=== PATIENT | female | born 1945 | race Caucasian/White ===

== ENCOUNTER → 2016-10-26 | Outpatient (CLI) | payer MEDICARE, BC ==
[2016-10-26 12:16] LABS: Appearance,Urine Clear (Clear); Bilirubin,Urine Negative (Negative); Glucose,Urine (UA) Negative (Negative); Ketones,Urine Negative (Negative); Leukocyte Esterase,Urine Negative (Negative); Nitrite,Urine Negative (Negative); PH, Urine 6.5 (5.0-8.0); Protein,Urine Negative (Negative); Specific Gravity,Urine 1.005 (1.001-1.035); UA Billing (MACRO vs. MICRO) CHEM; Urobilinogen,Urine <2.0 mg/dL (<2.0)
[2016-10-26 12:18] LABS: Basophils # (A) 0.1 k/uL (0-0.2); Basophils % (A) 1 %; CH 30.1; CHCM 32.5; Eosinophils # (A) 0.2 k/uL (0-0.7); Eosinophils % (A) 2 %; HDW 2.46; Luc # (Auto) 0.18; Luc % (Auto) 2; Lymphocytes # (A) 1.9 k/uL (1.0-4.8); Lymphocytes % (A) 17 %; MCH 29.6 pg (25.0-35.0); MCHC 31.8 g/dL (31.0-37.0); MCV 93.1 fL (80.0-100.0); Mean Platelet Volume 8.1; Monocytes # (A) 0.9 k/uL (0-1.0); Monocytes % (A) 8 %; Neutrophils # (A) 7.9 k/uL (1.3-7.7); Neutrophils % (A) 71 %; RBC 4.73 m/uL (3.80-5.40); RDW 12.9 % (11.5-15.5); WBC 11.1 k/uL (3.8-10.6); WBC (Perox) 12.11
[2016-10-26 12:30] LABS: Partial Thromboplastin Time 24.2 sec (22.0-30.0); Prothrombin Time 9.8 sec (9.0-12.0)
[2016-10-26 12:46] LABS: ALT 49 U/L (9-52); AST 40 U/L (14-36); Alkaline Phosphatase 89 U/L (38-126); Anion Gap 13 mmol/L; Blood Urea Nitrogen 13 mg/dL (7-17); Calcium 10.2 mg/dL (8.4-10.2); Carbon Dioxide 28 mmol/L (22-30); Chloride 104 mmol/L (98-107); Glucose 94 mg/dL (74-99); Non-African American GFR(MDRD) >60 (>60 ml/min/1.73 sqM); Potassium 4.7 mmol/L (3.5-5.1); Sodium 145 mmol/L (137-145); Total Bilirubin 0.8 mg/dL (0.2-1.3); Total Protein 7.3 g/dL (6.3-8.2)
== END | disposition home or self-care (01) ==
LOC: LABWHC1 11:25
PROVIDERS: ATTEND Orthopaedic Surgery Sports Medicine
DX: Z01.810 Encounter for preprocedural cardiovascular examination (principal); Z11.2 Encounter for screening for other bacterial diseases
CPT/HCPCS: 80053; 81003; 85025; 85610; 85730; 87070

== ENCOUNTER 2016-11-10 10:43 | Inpatient (IN) | payer MEDICARE, BC ==
[2016-11-01 10:28] VITALS: BMI 30.1
[~2016-11-10 10:43] MED LIST: ACETAMINOPHEN TAB 500 MG TAB PO ONE; ALVIMOPAN 12 MG CAPSULE PO ONE; DEXAMETHASONE SOD PHOSPHATE 10 MG/ML 1 ML VIAL IV ONE; HYDROmorphone 1 MG/ML 1 ML SYRINGE IVP PRN; LIDOCAINE 1% 20 ML VIAL (10MG/ML) FOR IV START INTRADERMA PRN; MELOXICAM 7.5 MG TAB PO ONE; MIDAZOLAM 2 MG/2 ML VIAL IV PRN; ONDANSETRON 4 MG/2 ML VIAL IVP ONE; SCOPOLAMINE 1.5MG/72HR PATCH TRANSDERM ONE; ceFAZolin 2 GM in SODIUM CHLORIDE 0.9% 100 ML IVPB ONE
[2016-11-10] MEDS: LACTATED RINGERS 1,000 ML IV SCH ×2 (11:25→19:14)
[2016-11-10] MEDS ORDERED: fentaNYL (PF) 50 MCG/ML 2 ML AMP ONE (12:24)
[2016-11-10] MEDS ORDERED: PROPOFOL 10 MG/ML 20 ML VIAL IV ONE (12:24)
[2016-11-10] MEDS ORDERED: TRANEXAMIC ACID 1,000 MG/10 ML VIAL ONE (12:24)
[2016-11-10] MEDS ORDERED: MIDAZOLAM 2 MG/2 ML VIAL ONE (12:24)
[2016-11-10] MEDS ORDERED: SODIUM CHLORIDE 0.9% 100 ML BAG ONE (12:24)
[2016-11-10] MEDS ORDERED: MORPHINE SULFATE (PF) 0.3 MG/0.3 ML SYR ONE (12:24)
[2016-11-10] MEDS ORDERED: TRANEXAMIC ACID 1,000 MG in SODIUM CHLORIDE 0.9% 100 ML IVPB STA (12:55)
[2016-11-10] MEDS: ROPIVACAINE 246.25 MG, EPINEPHrine 0.5 MG, KETOROLAC 30 MG, cloNIDine HCL/PF 80 MCG, WA... MISCELLANE ONE ×10 (12:59→13:45)
[2016-11-10] MEDS ORDERED: ceFAZolin 3,000 MG in SODIUM CHLORIDE 0.9% IRRIGATIO 3,000 ML IRRIGATION ONE (13:00)
[2016-11-10] MEDS ORDERED: LACTATED RINGERS 1,000 ML IV ONE (13:08)
[2016-11-10] MEDS ORDERED: MAGNESIUM HYDROXIDE 2,400 MG/10 ML CUP PO PRN (14:34)
[2016-11-10] MEDS ORDERED: BISACODYL 10 MG SUPP RECTAL PRN (14:34)
[2016-11-10] MEDS ORDERED: ONDANSETRON 4 MG/2 ML VIAL IVP PRN ×2 (14:34→14:55)
[2016-11-10] MEDS ORDERED: hydrOXYzine PAMOATE 25 MG CAP PO PRN (14:34)
[2016-11-10] MEDS ORDERED: HYDROcodone/APAP 7.5-325MG 1 EACH TAB PO PRN (14:34)
[2016-11-10] MEDS ORDERED: ACETAMINOPHEN TAB 325 MG TAB PO PRN (14:34)
[2016-11-10] MEDS ORDERED: TEMAZEPAM 15 MG CAP PO PRN (14:34)
[2016-11-10] MEDS ORDERED: NA PHOS,M-B/NA PHOS,DI-BA 133 ML ENEMA RECTAL PRN (14:34)
[2016-11-10] MEDS ORDERED: DIAZEPAM 5 MG TAB PO PRN (14:34)
[2016-11-10] MEDS ORDERED: NALOXONE 0.4 MG/ML 1 ML VIAL IV PRN ×3 (14:34→15:31)
[2016-11-10] MEDS ORDERED: traMADol 50 MG TAB PO PRN (14:34)
[2016-11-10] MEDS ORDERED: HYDROmorphone 1 MG/ML 1 ML SYRINGE IVP PRN ×3 (14:34)
--- NOTE | 2016-11-10 14:53 | XR ---
EXAMINATION TYPE: XR knee limited RT DATE OF EXAM: 11/10/2016 2:50 PM CLINICAL HISTORY: Postoperative evaluation Two views of the right knee are submitted. Identified are changes of total knee arthroplasty with femoral and tibial components appearing well seated. Postsurgical soft tissue changes are noted. Alignment is anatomic.
[2016-11-10] MEDS ORDERED: MORPHINE SULFATE 4 MG/ML SYRINGE IVP PRN ×2 (14:55→15:31)
[2016-11-10] MEDS ORDERED: diphenhydrAMINE 50 MG/ML 1 ML VIAL IVP PRN (14:55)
[2016-11-10] MEDS: ASPIRIN 325 MG TAB PO SCH (19:39)
[2016-11-10] MEDS: SENNOSIDES-DOCUSATE SODIUM 1 EACH TAB PO SCH (19:39)
[2016-11-10] MEDS: ATORVASTATIN 10 MG TAB PO SCH (19:40)
[2016-11-10] MEDS: ceFAZolin 2 GM in SODIUM CHLORIDE 0.9% 100 ML IVPB SCH (23:44)
[2016-11-11 03:47] VITALS: RESP 16
[2016-11-11] MEDS: LACTATED RINGERS 1,000 ML IV SCH ×2 (03:58→05:55)
--- NOTE | 2016-11-11 07:20 | OP ---
DATE OF SERVICE: 11/10/2016 SURGEON: SAÚL GARCIA MD PRICE CHECKER: Clifford Flanagan PA-C PREOPERATIVE DIAGNOSIS: Right knee osteoarthrosis. POSTOPERATIVE DIAGNOSIS: Right knee osteoarthrosis. OPERATION: Right total knee arthroplasty. ANESTHESIA: Spinal with sedation. ESTIMATED BLOOD LOSS: 100 mL. TOURNIQUET TIME: 51 minutes at 250 mmHg. DRAINS: None. DISPOSITION: Postanesthesia care unit. INDICATIONS: Dawna is a very pleasant 71-year-old female with long-standing history of right knee pain. History and physical examination were consistent with advanced right knee osteoarthrosis. She has been through significant nonoperative management up to this point. Further treatment options were discussed and she decided to go forward with a right total knee arthroplasty. The risks of the procedure were discussed with her in detail. These risks include, but are not limited to risk of infection, nerve damage, bleeding, pain, and a small risk of deep vein thrombosis, which could lead to fatal pulmonary embolism. There is also a risk of loosening of the implant, which could require revision operation. Patient understands these risks. All questions were answered to her satisfaction. Appropriate informed consent was obtained. DESCRIPTION OF PROCEDURE: The patient was identified in the preoperative holding area. Surgical site was marked by both the patient and myself. She was given 2 grams of Ancef IV for prophylactic purposes. She was then transferred to the operative suite, where she was placed supine on the operating room table. Spinal anesthetic was then administered and dosed per the anesthesia department without apparent complication. Examination under anesthesia was then performed. The patient had full extension. She had 100 degrees of flexion. The medial collateral ligament, lateral collateral ligament and posterior cruciate ligaments were stable. Tourniquet was then placed high on the right upper thigh, well padded in preparation for surgery. The patient's right lower extremity was then prepped and draped in the usual sterile fashion. Standard surgical pause was then undertaken to ensure that we were operating on correct site and that appropriate preoperative antibiotics had been given. All staff in the room were in agreement and we proceeded. The outlines of the patella were then marked with a surgical pen. A planned 12 cm vertical incision centered over the patella was marked with a surgical pen. Leg was then exsanguinated with an Esmarch dressing. The knee was then flexed and tourniquet was inflated to 250 mmHg. The total tourniquet time for the procedure was 51 minutes at 250 mmHg. Incision was then made with a 10 blade scalpel. Dissection was carried down sharply through overlying fascia. Great care was taken to minimize the skin flaps. The knee was then exposed using a standard medial parapatellar approach. Small cuff of quadriceps tendon was left for suturing. She was in a bit of varus preoperatively. A standard medial release was then made. Superficial medial collateral ligament was dissected off the bone around to the posterior aspect of the proximal tibia. The medial meniscus was then excised as well. The lateral meniscus was also released anteriorly. The leg was then externally rotated. The patella was everted and the knee was flexed. Retractors were then placed to protect the collateral ligaments. We then proceeded to remove the infrapatellar fat pad. This was excised sharply tangentially with the fibers of the patellar tendon. I then proceeded to remove the peripheral osteophytes. This was done with a rongeur. I then proceeded with the distal femoral resection. She did have near full extension. A planned 9 mm resection was done. The femoral canal was then entered in the midline of the femur, approximately 10 mm anterior to the origin of the posterior cruciate ligament. The britany was then advanced down the center of the femur and the britany placed intramedullary. Based on preoperative radiographs, the angle being the anatomic and mechanical axis of the femur was approximately 4 to 5 degrees. The valgus angle of the distal femoral cutting guide was then set at 4 degrees for the right knee. The distal femoral cutting guide was then advanced over the intramedullary britany. This was seated firmly against the femur. I then, as mentioned, planned to take 9 mm off the distal femur. The cutting block was then secured onto the femur with pins. The jig was then removed and the distal femoral cut was made through the slot of the block. The pins then removed and the distal femoral cutting block was removed. The accuracy of the distal femoral cuts was checked with 2 flat bars. I then proceeded with femoral sizing. The posterior referencing sizing guide was held firmly against the resected distal surface of the femur. Posterior condyles were resting on the posterior plane of the guide. The sizing stylus was then placed onto the anterior femur. Size was measured at a size 9. I then assessed for femoral rotation. Plan was for 3 degrees of external rotation, 3 degrees of external rotation was placed onto the jig. These holes were then marked. I then confirmed rotation by 3 separate methods. This was done using up the epicondylar axis as well as Whitesides line and posterior referencing. It was deemed that the external rotation was proper. I then went forward with placing the femoral cutting block. This was placed over the previously placed pinholes. The mary wing was then placed onto the anterior slots to ensure that we would not notch the anterior femur with the anterior femoral cut. I then proceeded with the anterior femoral cut. This was flush with the anterior cortex of the femur. Posterior cuts were then made followed by the anterior chamfer cut and then the posterior chamfer cut. The cutting block was then removed. Throughout the resection, the collateral ligaments were protected with retractors. I then placed a trial 9 femur. It fit very nice medial to lateral and fit flush with the distal end of the femur. The drill holes were then made. I then proceeded with the tibial cut. I planned for a cruciate-retaining knee. The guide was then placed and set for varus valgus and for slope. The height was set for approximately 2 mm resection from the medial tibial plateau, which was the lower side. I was happy with the alignment and the amount of resection. The cutting block was then pinned to the proximal tibia. The alignment britany was removed and the proximal tibia was resected with reciprocating saw. Again this was done with retractors, protecting the collateral ligaments as well as posterior cruciate ligament. I then proceeded to evaluate the flexion and extension gaps. A 10 mm block was placed. The flexion-extension gaps were equal. I then proceeded with resection of the posterior osteophytes. She had very minimal posterior osteophytes. This was done using a curved osteotome. This resected the posterior osteophytes and posterior capsule stripping was also done off the posterior aspect of the femur at this time. The osteophytes were then removed. I then proceeded with resection of the patella. Thickness of the patella was measured using the caliper. Thickness was 22 mm. Thickness of the anticipated patellar dome was then taken into account. Resection was then performed and confirmed to be equal in 4 quadrants using the caliper. Approximately 14 mm of bone remained after the resection. A 29 x 8 mm standard patellar trial was then placed. The ( ) were then drilled and trial was then placed. I then proceeded with sizing tibial plate. A size F tibial plate fit very nicely. I then placed a trial femur, tibial tray and patellar button. A 10 mm trial tibial insert was also placed. The components fit very nicely. She had full flexion and extension. The extension and flexion gaps were equal and stable to both varus and valgus stress. The patella tracked appropriately. Tibial tray rotation was then marked with a Bovie. This was externally rotated properly. I then proceeded with tibial preparation. I first drilled the femoral holes and removed femoral component. The tibial tray was then set for proper external rotation as well as mediolateral placement onto the tibia. It was then pinned into place. I then proceeded with punching the keel. I then decided to proceed with cementing of all of our components. The knee was thoroughly irrigated with sterile saline solution via pulse lavage. The lateral geniculate artery was identified and cauterized. All blood was removed from the bone of the tibia, femur and patella with pulse lavage. I then proceeded with cementing. Two packs of antibiotic bone cement were prepared on the back table by the surgical supply assistant. I then proceed with cementing of the tibia first. The cement was impacted in the keel as well as deeply seated into bone. A second coat of cement was then placed. Tibia was then impacted into place. Excess cement was removed with Marietta's and jokers. I then proceeded with cementing of the femoral component. The femoral component was also cemented using standard technique. Excess cement was removed. A 10 mm trial insert was then placed into the knee. This brought into full extension with a constant axial load placed until the cement had hardened. The patellar component was then cemented. This was held firmly with a compressive device until the cement had dried. When the cement had dried, the knee was taken out of extension. All excess cement was removed from around the prosthesis. I then trialed the knee with a 10 mm insert. Flexion-extension gaps were appropriate. It came into full extension. Decided to go forward with a 10 mm cross-linked cruciate-retaining tibial insert. Polyethylene was then placed onto the tibial tray and locked into place. The knee was then reduced. The knee was again further irrigated with sterile saline solution with antibiotic added. The tourniquet was then deflated. Total tourniquet time for the case was 51 minutes at 250 mmHg. Final components were Jae persona size 9 cruciate-retaining femoral component, a size F tibial tray, a 10 mm medial congruent cruciate retaining polyethylene insert and a 29 x 8 mm patella. I then proceeded with closure. Again, the knee was thoroughly irrigated. The quadriceps tendon and the medial retinaculum were reapproximated with #2 Ethibond suture. The extensor mechanism was then closed with running #2 Quill suture. Subcutaneous tissues were closed with 2-0 Vicryl interrupted suture. Skin was closed with a running 3-0 Quill suture. Dermabond was applied to the incision. Sterile compressive dressings were applied. All sponge and needle counts were deemed correct prior to closure. The patient tolerated the procedure without apparent complication. She was transferred to the recovery room in stable condition.
[2016-11-11 07:27] LABS: Basophils # (A) 0.1 k/uL (0-0.2); Basophils % (A) 0 %; CH 30.2; CHCM 32.9; Eosinophils % (A) 0 %; HGB 11.3 gm/dL (11.4-16.0); Luc % (Auto) 1; Lymphocytes # (A) 1.2 k/uL (1.0-4.8); Lymphocytes % (A) 6 %; MCH 30.6 pg (25.0-35.0); MCHC 33.2 g/dL (31.0-37.0); MCV 92.3 fL (80.0-100.0); Mean Platelet Volume 8.3; Monocytes # (A) 1.1 k/uL (0-1.0); Monocytes % (A) 6 %; Neutrophils # (A) 15.8 k/uL (1.3-7.7); Neutrophils % (A) 87 %; RBC 3.69 m/uL (3.80-5.40); RDW 12.7 % (11.5-15.5); WBC 18.2 k/uL (3.8-10.6); WBC (Perox) 19.66
[2016-11-11] MEDS: ceFAZolin 2 GM in SODIUM CHLORIDE 0.9% 100 ML IVPB SCH (07:54)
[2016-11-11] MEDS: ASPIRIN 325 MG TAB PO SCH ×2 (07:54→19:50)
[2016-11-11] MEDS: HYDROcodone/APAP 7.5-325MG 1 EACH TAB PO PRN ×3 (08:13→19:50)
--- NOTE | 2016-11-11 08:36 | P.PN ---
Progress Note - Text Date: 11/11/2016 Time: 720 The patient is status post, total right knee arthroplasty Vital signs stable VAS: 0-10 Patient has no complaints of pain. The patient incurred some minimal itching yesterday, this itching is now subsiding. Pain meds to be managed by service.
--- NOTE | 2016-11-11 13:01 | P.PN ---
Subjective Principal diagnosis: S/P Right TKA Patient is postop day #1 from a right total knee arthroplastyperformed by Dr. Smart. She is doing well today. She has postoperative surgical pain as expected which is mostly controlled with oral pain medication. She denies any new complaints. She has no numbness or tingling. She denies calf pain. Review of systems is negative for fever, chills, chest pain, shortness of breath or other. Objective - Vital Signs Vital signs: Vital Signs Temp 97.3 F L 11/11/16 07:00 Pulse 77 11/11/16 07:00 Resp 16 11/11/16 07:00 BP 131/65 11/11/16 07:00 Pulse Ox 95 11/11/16 07:00 Intake & Output 11/10/16 11/11/16 11/11/16 18:59 06:59 18:59 Intake Total 1701 1200 240 Output Total 141 829 9345 Balance 1426 650 -760 Weight 89.811 kg Intake: IV 1701 Intake, IV Titration 900 Amount Lactated Ringers 1,000 ml 900 @ 100 mls/hr IV .Q10H GRACE Rx#:[id number] Oral 300 240 Output: Urine 477 872 5218 Uretheral ([place]) 1000 Estimated Blood Loss 100 Other: Voiding Method Indwelling Catheter Indwelling Catheter Indwelling Catheter - Exam Inspection of the surgical wound reveals a benign intact incision. There is no active bleeding, drainage or dehiscence. Calf is soft and nontender. Sensation to light touch is intact throughout the lower extremity. She is able to plantarflex and dorsiflex the foot. 2+ dorsalis pedis pulse and less than 2 second cap refill is present. - Constitutional General appearance: Present: no acute distress - Psychiatric Psychiatric: Present: A&O x's 3, appropriate affect, intact judgment & insight - Labs CBC & Chem 7: 11/11/16 06:59 Labs: Abnormal Lab Results - Last 24 Hours (Table) 11/11/16 Range/Units 06:59 WBC 18.2 H (3.8-10.6) k/uL RBC 3.69 L (3.80-5.40) m/uL Hgb 11.3 L (11.4-16.0) gm/dL Neutrophils # 15.8 H (1.3-7.7) k/uL Monocytes # 1.1 H (0-1.0) k/uL Assessment and Plan (1) Status post total knee replacement Narrative/Plan: Patient will continue with routine postop orthopedic protocol including pain management, wound care, physical therapy, DVT prophylaxis and medical management. Expect that she'll discharge to home with home healthcare tomorrow 11/12/2016 Status: Acute Time with Patient: Less than 30
[2016-11-11] MEDS: MULTIVITAMINS, THERA 1 EACH TAB PO SCH (13:21)
--- NOTE | 2016-11-11 16:52 | CONS ---
DATE OF CONSULTATION: REASON FOR CONSULTATION: Leukocytosis and management of hypertension. Patient is a pleasant 71-year-old female admitted for right knee arthroplasty. Patient postsurgically clinically did well and patient did move her bowels today. Patient denied any fever, chills. Patient denied any nausea, vomiting, cough, dysuria. Patient does not have a [place] catheter at this point of time. REVIEW OF SYSTEMS: CONSTITUTIONAL: No fever, no malaise, no fatigue. HEENT: No recent visual problems or hearing problems. Denied any sore throat. CARDIOVASCULAR: No chest pain, orthopnea, PND, no palpitations, no syncope. PULMONARY: No shortness of breath, no cough, no hemoptysis. GASTROINTESTINAL: No diarrhea, no nausea, no vomiting, no abdominal pain. Normoactive bowel sounds. NEUROLOGICAL: No headaches, no weakness, no numbness. HEMATOLOGICAL: Denies any bleeding or petechiae. GENITOURINARY: Denies any burning micturition, frequency, or urgency. MUSCULOSKELETAL/RHEUMATOLOGICAL: Denies any joint pain, swelling, or any muscle pain. ENDOCRINE: Denies any polyuria or polydipsia. The rest of the 14 point review of systems is negative. PAST MEDICAL HISTORY: Hypertension, hyperlipidemia, UTIs in the past. The patient had skin cancer in the past. Patient has breast surgery, tubal ligation surgery. SOCIAL HISTORY: Denied smoking, alcohol abuse or any drug abuse. FAMILY HISTORY: Significant for cancer. PHYSICAL EXAMINATION: VITAL SIGNS: Temperature 96.9, pulse of 81, respiratory rate of 16, blood pressure 130/65. Saturating at 90% on 2 liters of O2 nasal cannula. GENERAL: The patient is alert and oriented x3, not in any acute distress. Well developed, well nourished. HEENT: Pupils are round and equally reacting to light. EOMI. No scleral icterus. No conjunctival pallor. Normocephalic, atraumatic. No pharyngeal erythema. No thyromegaly. CARDIOVASCULAR: S1 and S2 present. No murmurs, rubs, or gallops. PULMONARY: Chest is clear to auscultation, no wheezing or crackles. ABDOMEN: Soft, nontender, nondistended, normoactive bowel sounds. No palpable organomegaly. MUSCULOSKELETAL: Defer to primary service. EXTREMITIES: No cyanosis, clubbing, or pedal edema. NEUROLOGICAL: Gross neurological examination did not reveal any focal deficits. SKIN: No rashes. Laboratory data is significant for leukocytosis of 18,200 which is neutrophilic leukocytosis. ASSESSMENT AND PLAN: 1. Leukocytosis reactive secondary to right knee arthroplasty. 2. Hypertension. I recommend to hold losartan at this point of time. It can be continued upon discharge. 3. Hyperlipidemia. Continue simvastatin. 4. Right knee arthroplasty. Anticoagulation and pain management as per primary service. 5. At this point of time patient does not have any signs or symptoms of systems. I do not believe patient will require any antibiotics at this point. Thanks for letting me participate in this patient's care. Patient's primary care physician is Dr. Luis F Orozco.
[2016-11-11] MEDS: ATORVASTATIN 10 MG TAB PO SCH (19:50)
[2016-11-11] MEDS: SENNOSIDES-DOCUSATE SODIUM 1 EACH TAB PO SCH (19:50)
[2016-11-12] MEDS: LACTATED RINGERS 1,000 ML IV SCH (04:57)
[2016-11-12] MEDS: HYDROcodone/APAP 7.5-325MG 1 EACH TAB PO PRN ×2 (06:48→13:07)
[2016-11-12] MEDS: ASPIRIN 325 MG TAB PO SCH (08:37)
[2016-11-12] MEDS: MULTIVITAMINS, THERA 1 EACH TAB PO SCH (08:38)
--- NOTE | 2016-11-12 09:22 | P.DS ---
Providers Date of admission: 11/10/16 10:43 Expected date of discharge: 11/12/16 Attending physician: José Miguel Smart Consults: 11/10/16 14:38 Consult Physician Routine Consulting Provider: Delmy Goldberg Consult Reason/Comments: post op medical management Do you want consulting provider notified?: Yes Primary care physician: Luis F Orozco - Discharge Diagnosis(es) (1) Primary osteoarthritis of right knee Current Visit: Yes Status: Acute (2) Status post right knee replacement Current Visit: Yes Status: Acute Hospital Course: This is a pleasant 71-year-old female last seen in our office with complaints of right knee pain. Patient has known history of degenerative arthritis of the right knee and presented to discuss options. After discussion and consideration , patient elected to proceed with a total knee arthroplasty of the right knee. The patient was seen preoperatively and medically cleared for surgery by her primary care physician. The patient was admitted to [facility] and underwent right total knee arthroplasty on 11/10/[address] Smart. The procedure was performed without complications or sequelae. The patient has done well postoperatively. The patient was seen and evaluated at bedside today and denies any new complaints. Pain is reasonably controlled. Dressing is clean dry and intact. Incision looks fine with no erythema or active drainage. Calf is soft and nontender. The patient has full foot and ankle motion without difficulty. Patient's right lower extremity is neurovascular intact. Patient is orthopedically stable for discharge to home today. Patient Condition at Discharge: Stable Plan - Discharge Summary New Discharge Prescriptions: HYDROcodone/APAP 7.5-325MG [[place] 7.5-325] 1 - 2 each PO Q6HR PRN #90 tab PRN Reason: Pain Aspirin 325 mg PO BID #60 tab Docusate [Colace] 100 mg PO BID #60 capsule Discharge Medication List Ciprofloxacin HCl [Cipro] 500 mg PO MOWEFR 11/01/16 [History] Ergocalciferol (Vitamin D2) [Vitamin D2] 50,000 unit PO WE 11/01/16 [History] Losartan Potassium 100 mg PO QAM 11/01/16 [History] Meloxicam [Mobic] 15 mg PO DAILY 11/01/16 [History] Simvastatin [Zocor] 20 mg PO HS 11/01/16 [History] Aspirin 325 mg PO BID #60 tab 11/11/16 [Rx] Docusate [Colace] 100 mg PO BID #60 capsule 11/11/16 [Rx] HYDROcodone/APAP 7.5-325MG [[place] 7.5-325] 1 - 2 each PO Q6HR PRN #90 tab [Rx] Follow up Appointment(s)/Referral(s): [facility], [NON-STAFF] - José Miguel Smart MD [STAFF PHYSICIAN] - 2 Weeks Activity/Diet/Wound Care/Special Instructions: [facility] - [phone] - to be delivered to hospital prior to discharge Weightbearing as tolerated Keep wound clean and dry Follow-up with Dr. Smart in office, [phone] Take meds as directed Discharge Disposition: HOME WITH HOME HEALTH SERVICES
[2016-11-12 11:03] VITALS: BP 154/71; PULSE 93; TEMP 96.9
[2016-11-12 11:50] LABS: CH 30.4; CHCM 33.4; HCT 34.3 % (34.0-46.0); HDW 2.48; HGB 11.1 gm/dL (11.4-16.0); Immature Gran Flag Slight; MCH 29.7 pg (25.0-35.0); MCHC 32.5 g/dL (31.0-37.0); MCV 91.4 fL (80.0-100.0); Mean Platelet Volume 8.8; RBC 3.75 m/uL (3.80-5.40); RDW 12.8 % (11.5-15.5); WBC 12.4 k/uL (3.8-10.6); WBC (Perox) 13.41
[2016-11-12 12:37] LABS: Add Differential Manual Differential
[2016-11-12 12:39] LABS: Manual Review Performed; Metamyelocytes % 0.5 %; Nucleated Red Blood Cells 0 /100 WBC (0-0); Total Cells Counted 200
--- NOTE | 2016-11-12 22:27 | PN ---
DATE OF SERVICE: 11/12/2016 This 71-year-old woman was admitted after right knee arthroplasty as well as leukocytosis. No chest pain or palpitation. No fever. On exam, alert and oriented x3. Pulse 93, blood pressure 154/70, respirations 16, temperature 96.9, pulse ox 96% on room air. HEENT: Conjunctivae normal. NECK: No jugular venous distension. CARDIOVASCULAR: S1 and S2 muffled. RESPIRATORY: Breath sounds diminished in the bases. No rhonchi. No crackles. ABDOMEN: Soft. LEGS: Status post right knee arthroplasty. NERVOUS SYSTEM: Nonfocal. LABS: WBC 12.8, Hemoglobin is 11.1. ASSESSMENT: 1. Status post right knee arthroplasty. 2. Leukocytosis, possibly reactive. 3. Hypertension. 4. Anemia, possibly dilutional, postoperative. 5. Hyperlipidemia. 6. History of degenerative joint disease. 7. History of hyperlipidemia. 8. History of urinary tract infections, recurrent. 9. History of motion sickness. RECOMMENDATIONS AND DISCUSSION: This 71-year-old woman presented after surgery, is improving at this time. WBC has improved significantly. I recommend to continue with incentive spirometry, closely follow with the primary physician in outpatient setting and the rest of the medications per Orthopedic Surgery. Further recommendations to follow.
[2016-11-13] MEDS ORDERED: LOSARTAN 50 MG TAB PO SCH (09:00)
[2016-11-16] MEDS ORDERED: ERGOCALCIFEROL 50,000 UNIT CAP PO SCH (09:00)
== END 2016-11-12 13:25 | disposition home health service (06) | DRG 470 ==
LOC: 2ORMAIN 10:43 → 3SUR 14:42
PROVIDERS: ADMIT Orthopaedic Surgery Sports Medicine; ATTEND Orthopaedic Surgery Sports Medicine
PROC: 0SRC0J9 Replacement of Right Knee Joint with Synthetic Substitute, Cemented, Open Approach (ICD-10-PCS; principal; 2016-11-10 12:30)
DX: M17.0 Bilateral primary osteoarthritis of knee (principal); D64.9 Anemia, unspecified; I10 Essential (primary) hypertension; Z79.899 Other long term (current) drug therapy; E78.5 Hyperlipidemia, unspecified; D72.829 Elevated white blood cell count, unspecified; Z85.828 Personal history of other malignant neoplasm of skin; Z87.440 Personal history of urinary (tract) infections
CPT/HCPCS: 85025; 88300

== ENCOUNTER → 2022-08-10 | Outpatient (CLI) | payer MEDICARE, BC ==
[2022-08-10 13:48] LABS: Partial Thromboplastin Time 24.4 sec (22.0-30.0)
[2022-08-10 18:31] LABS: HCT 40.9 % (37.2-46.3); HGB 13.5 g/dL (12.0-15.0); MCH 30.8 pg (27.0-32.0); MCV 93.4 fL (80.0-97.0); Mean Platelet Volume 10.7 fL (9.5-12.2); NRBC Per 100 WBC 0 /100 WBCS (0.0-0.0); Platelet Count 320 X 10*3/uL (140-440); RBC 4.38 X 10*6/uL (4.10-5.20); RDW 12.8 % (11.5-14.5); WBC 12.17 X 10*3/uL (4.50-10.00)
[2022-08-10 18:48] LABS: Appearance,Urine Clear (Clear); Bilirubin,Urine Negative (Negative); Blood,Urine Negative (Negative); Color,Urine Yellow (Yellow); Ketones,Urine Negative (Negative); Nitrite,Urine Negative (Negative); PH, Urine 7.5 (5.0-8.0); Specific Gravity,Urine 1.007 (1.001-1.030); Urobilinogen,Urine 0.2 (0.2,1.0)
[2022-08-10 18:58] LABS: Bacteria,Urine None Seen /HPF (None Seen)
[2022-08-10 19:05] LABS: African American GFR (CKD) 90.2 (60.0-200.0); Albumin 4.4 g/dL (3.8-4.9); Albumin/Globulin Ratio 1.82 (1.60-3.17); Anion Gap 10.3 mmol/L (10.00-18.00); BUN/Creat Ratio 22.77 Ratio (12.00-20.00); Blood Urea Nitrogen 17.1 mg/dL (9.0-27.0); Carbon Dioxide 27.6 mmol/L (20.0-27.5); Globulin 2.4 g/dL (1.6-3.3); Non-African American GFR(CKD) 77.9 (60.0-200.0); Potassium 4.5 mmol/L (3.5-5.5); Total Bilirubin 0.5 mg/dL (0.30-1.20); Total Protein 6.9 g/dL (6.2-8.2)
[2022-08-11 06:55] LABS: INR 0.9 (<1.2); Prothrombin Time 9.9 sec (9.0-12.0)
== END | disposition home or self-care (01) ==
LOC: LABPAT 12:59
PROVIDERS: ATTEND Orthopaedic Surgery Sports Medicine
DX: Z01.818 Encounter for other preprocedural examination (principal); R94.31 Abnormal electrocardiogram [ECG] [EKG]
CPT/HCPCS: 80053; 81001; 85027; 85610; 85730; 87070; 93005

== ENCOUNTER 2022-08-25 07:42 | Day surgery (SDC) | payer MEDICARE, BC ==
[2022-08-15 11:28] VITALS: BMI 30.1
[~2022-08-25 07:42] MED LIST changes: -ACETAMINOPHEN TAB 500 MG TAB PO ONE; +ACETAMINOPHEN TAB 500 MG TAB PO PRN; -ALVIMOPAN 12 MG CAPSULE PO ONE; -DEXAMETHASONE SOD PHOSPHATE 10 MG/ML 1 ML VIAL IV ONE; +GABAPENTIN 300 MG CAP PO PRN; -HYDROmorphone 1 MG/ML 1 ML SYRINGE IVP PRN; -LIDOCAINE 1% 20 ML VIAL (10MG/ML) FOR IV START INTRADERMA PRN; -MELOXICAM 7.5 MG TAB PO ONE; +MELOXICAM 7.5 MG TAB PO PRN; -MIDAZOLAM 2 MG/2 ML VIAL IV PRN; -ONDANSETRON 4 MG/2 ML VIAL IVP ONE; +ONDANSETRON 4 MG/2 ML VIAL IVP PRN; -SCOPOLAMINE 1.5MG/72HR PATCH TRANSDERM ONE; +TRANEXAMIC ACID IN NACL,ISO-OS 1,000 MG in SALINE 1 100ML.BAG IVPB PRN; -ceFAZolin 2 GM in SODIUM CHLORIDE 0.9% 100 ML IVPB ONE
[2022-08-25] MEDS ORDERED: LIDOCAINE 1% (10MG/ML) FOR IV START INTRADERMA PRN (07:54)
[2022-08-25] MEDS ORDERED: HYDROmorphone 0.5 MG/0.5 ML SYRINGE IVP PRN ×4 (07:54→09:31)
[2022-08-25] MEDS: LACTATED RINGERS 1,000 ML IV SCH ×5 (09:03→21:11)
[2022-08-25] MEDS: DEXAMETHASONE SOD PHOSPHATE 4 MG/ML 1 ML VIAL IV ONE ×2 (09:05→14:16)
[2022-08-25] MEDS: ONDANSETRON 4 MG/2 ML VIAL IVP ONE ×2 (09:05→14:16)
[2022-08-25] MEDS ORDERED: MIDAZOLAM 2 MG/2 ML VIAL IV ONE (09:22)
[2022-08-25] MEDS ORDERED: MAGNESIUM HYDROXIDE 2,400 MG/10 ML CUP PO PRN (09:31)
[2022-08-25] MEDS ORDERED: bisacodyL 10 MG SUPP RECTAL PRN (09:31)
[2022-08-25] MEDS ORDERED: ACETAMINOPHEN TAB 325 MG TAB PO PRN (09:31)
[2022-08-25] MEDS ORDERED: TEMAZEPAM 15 MG CAP PO PRN (09:31)
[2022-08-25] MEDS ORDERED: ONDANSETRON 4 MG/2 ML VIAL IVP PRN (09:31)
[2022-08-25] MEDS ORDERED: NALOXONE 0.4 MG/ML 1 ML VIAL IV PRN (09:31)
[2022-08-25] MEDS ORDERED: diazePAM 5 MG TAB PO PRN (09:31)
[2022-08-25] MEDS ORDERED: traMADol 50 MG TAB PO PRN (09:31)
[2022-08-25] MEDS ORDERED: NA PHOS,M-B/NA PHOS,DI-BA 133 ML ENEMA RECTAL PRN (09:31)
[2022-08-25] MEDS ORDERED: HYDROcodone/APAP 7.5-325MG 1 EACH TAB PO PRN ×2 (09:34)
[2022-08-25] MEDS ORDERED: ROPIVACAINE 5 MG/ML 30 ML VIAL ONE (09:55)
[2022-08-25] MEDS ORDERED: MIDAZOLAM 2 MG/2 ML VIAL ONE (09:55)
[2022-08-25] MEDS ORDERED: DEXAMETHASONE SOD PHOSPHATE 4 MG/ML 1 ML VIAL ONE (09:55)
[2022-08-25] MEDS ORDERED: PROPOFOL 10 MG/ML 20 ML VIAL IV ONE (09:55)
[2022-08-25] MEDS ORDERED: fentaNYL (PF) 50 MCG/ML 2 ML AMP ONE (09:55)
[2022-08-25] MEDS ORDERED: TRANEXAMIC ACID IN NACL,ISO-OS 1,000 MG/100 ML BAG ONE (09:55)
[2022-08-25] MEDS ORDERED: ceFAZolin 3,000 MG in SODIUM CHLORIDE 0.9% IRRIGATIO 3,000 ML IRRIGATION ONE (10:22)
[2022-08-25] MEDS ORDERED: LACTATED RINGERS 1,000 ML IV ONE (11:01)
[2022-08-25] MEDS ORDERED: ROPIVACAINE 0.2%-NS ON-Q PUMP 2 MG/ML EACH MISCELLANE ONE (12:35)
--- NOTE | 2022-08-25 13:02 | OP ---
OPERATIVE REPORT PREOPERATIVE DIAGNOSIS: Left knee osteoarthrosis. POSTOPERATIVE DIAGNOSIS: Left knee osteoarthrosis. PROCEDURE PERFORMED: Left total knee arthroplasty. ANESTHESIA: Spinal with sedation. ESTIMATED BLOOD LOSS: 100 mL. TOURNIQUET TIME: 60 minutes at 250 mmHg. COMPLICATIONS: None apparent. DRAINS: None. DISPOSITION: Postanesthesia care unit. INDICATIONS FOR PROCEDURE: Dawna is a very pleasant 77-year-old female with longstanding history of left knee pain. History and physical examination are consistent with advanced left knee osteoarthrosis. She has been through significant nonoperative management up to this point. Further treatment options were discussed, and she decided to go forward with the left total knee arthroplasty. The risks of procedure were all discussed with her in detail. These risks include, but are not limited to risk of infection, nerve damage, bleeding, pain, and a small risk of deep vein thrombosis, which could lead to fatal pulmonary embolism. There is also risk of loosening of the implant, which could require revision operation. The patient understands these risks. All of her questions were answered to her satisfaction. An appropriate informed consent was obtained. DESCRIPTION OF THE PROCEDURE: The patient was identified in the preoperative holding area. Surgical site was marked by both the patient and myself. She was given 2 g of Ancef IV for prophylactic purposes. She was then transported to the operative suite. She was placed supine on the operating room table. Spinal anesthetic was then administered and dosed per the Anesthesia Department without apparent complication. Examination under anesthesia was then performed. The patient was 2 to 3 degrees shy of full extension. She had 95 degrees of flexion, and the medial collateral ligament, lateral collateral ligament, and posterior cruciate ligaments were stable. Tourniquet was then placed high on the left upper thigh and well-padded in preparation for surgery. The patient's left lower extremity was then prepped and draped in usual sterile fashion. Standard surgical pause was undertaken to ensure that we were operating the correct site and that appropriate preoperative antibiotics had been given. All staff in the room were in agreement, and we proceeded. The outlines of the patella were marked with a surgical pen. A planned 12 cm vertical incision centered over the patella was marked with a surgical pen. The leg was then exsanguinated with an Esmarch dressing. The knee was then flexed, and the tourniquet was inflated to 250 mmHg. The total tourniquet time for the procedure was 60 minutes. Incision was then made with a 10-blade scalpel. Dissection was carried down sharply overlying the fascia. Great care was taken to minimize the skin flaps. The knee was then exposed using a standard medial parapatellar approach. A small cuff of quadriceps tendon was then left for suturing. She was in quite a bit of varus preoperatively. A standard medial release was then made. Superficial medial collateral ligament was dissected off the bone around to the posterior aspect of the proximal tibia. The medial meniscus was then excised as well. The lateral meniscus was also released anteriorly. The leg was then externally rotated. The patella was everted. The knee was flexed. The retractors were then placed to protect the collateral ligaments. I then proceeded to remove the infrapatellar fat pad. This was excised sharply tangentially with the fibers of the patellar tendon. I then proceeded to remove the peripheral osteophytes. This was done with a rongeur. I then proceeded with the distal femoral resection. She did have near full extension. A planned 9 mm resection was then done. The femoral canal was then entered in the midline of the femur approximately 10 mm anterior to the origin of the posterior cruciate ligament. The britany was then advanced down to the center of the femur and placed intramedullary. Based on the preoperative radiographs, the angle between the anatomic and mechanical axis of the femur was approximately 4 to 5 degrees. The valgus angle of the distal femoral cutting guide was then set at 4 degrees for the left knee. The distal femoral cutting guide was then advanced over the intramedullary britany. This was seated firmly against the femur. I then as mentioned planned to take 9 mm off the distal femur. The cutting block was then secured onto the femur with pins. The jig was then removed. The distal femoral cuts were made through the slot of the block. The pins were then removed. The distal femoral cutting block was removed. The accuracy of the distal femoral cuts was checked with 2 flat bars. I then proceeded with femoral sizing. Posterior referencing sizing guide was held firmly against the resected distal surface of the femur. The posterior condyles were resting on the posterior plane of the guide. The sizing stylus was then placed onto the anterior femur. The size was measured as a size 8. I then assessed for femoral rotation. The plan was for 3 degrees of external rotation. Three degrees of external rotation was placed onto the jig. These holes were then marked. I then confirmed the rotation by 3 separate methods. This was done using epicondylar axis as well as [place]'s line and posterior referencing. It was deemed that the external rotation was proper. I then went forward and placed the femoral cutting block. This was placed over the previously-placed pin holes. The Ash wing was then placed onto the anterior slots to ensure that we would not notch the anterior femur with the anterior femoral cut. I then proceeded with the anterior femoral cut. This was flushed with the anterior cortex of the femur. The posterior cuts were then made followed by the anterior chamfer cut, then the posterior chamfer cut. The cutting block was then removed. Throughout the resection, the collateral ligaments were protected with retractors. I then placed a trial size 8 femur. It was slightly wide medial and lateral, but the narrow fit very nicely, and it fit flush with the distal end of the femur. The drill hole was then made. I then proceeded with the tibial cut. I planned for cruciate-retaining knee. The guide was placed and set for varus and valgus and for slope. The height was set for approximate 2 mm resection from the medial tibial plateau, which was the lower side. I was happy with the alignment and the amount of resection. The cutting block was then pinned to the proximal tibia. The alignment britany was removed, and the proximal tibia was resected with a reciprocating saw. Again, this was done with retractors protecting the collateral ligaments as well as the posterior cruciate ligament. I then proceeded to evaluate the flexion and extension gaps. A 10 mm block was then placed. The flexion and extension gaps were equal. I then proceeded with resection of the posterior osteophytes. She had very minimal posterior osteophytes. This was done using a curved osteotome. This resected the posterior osteophytes, and posterior capsular stripping was done off the posterior aspect of the femur at this time. The osteophytes were then removed. I then proceeded with resection of the patella. The thickness of the patella was measured using the caliper. The thickness was 22 mm. The thickness of the anticipated patellar dome was taken into account. Resection was then performed and confirmed to be equal in 4 quadrants using a caliper. Approximately 14 mm of bone remained after resection. A 29 x 8 standard patellar trial was then placed. The holes were drilled, and the trial was then placed. I then proceeded with sizing the tibial plate. A size E tibial plate fit very nicely. I then placed the trial femur, the tibial tray, and the patellar button. A 10 mm trial tibial insert was also placed. The components fit very nicely. She had full extension and flexion. The extension and flexion gaps were equal and stable to both varus and valgus stress. The patella tracked appropriately. Tibial tray rotation was then marked with a Bovie. This was externally rotated properly. I then proceeded with tibial preparation. I first drilled the femoral holes and removed the femoral component. Tibial tray was then set for proper external rotation as well as medial and lateral placement onto the tibia. It was then pinned into place. I then proceeded with punching the keel. I then decided to proceed with cementing of all of our components. The knee was thoroughly irrigated with sterile saline solution via pulsed lavage. The lateral genicular artery was identified and cauterized. All blood was removed from the bone of the tibia, femur, and patella with pulsed lavage. I then proceeded with cementing. Two packs of antibiotic bone cement prepared on the back table by the rn medical surgical. I then proceeded with cementing of the tibia first. The cement was impacted into the keel as well as deeply seated into the bone. A second coat of cement was then placed. The tibia was then impacted into place. Excess cement was removed with Hernandez's and Joker's. I then proceeded with cementing of the femoral component. The femoral component was also cemented using standard technique. Excess cement was removed. A 10 mm trial insert was then placed into the knee. It was brought into full extension with a constant axial load placed until the cement had hardened. The patellar component was then cemented. This was held firmly with a compressive device until the cement had dried. When the cement had dried, the knee was taken out of extension. All excess cement was removed from around the prosthesis. I then trialed the knee with a 10 mm insert. The flexion and extension gaps were appropriate. The knee was stable. It came into full extension. I decided to go forward with a 10 mm Medial Congruent cross-linked cruciate- retaining tibial insert. Polyethylene was then placed onto the tibial tray and locked into place. The knee was then reduced. The knee was again further irrigated with sterile saline solution with antibiotic added. The tourniquet was then deflated. The total tourniquet time for the procedure was 60 minutes at 250 mmHg. Final components were Jae Persona size 8 narrow cruciate-retaining femoral component, a size E tibial tray, a 10 mm Medial Congruent cruciate-retaining polyethylene insert, and a 29 x 8 mm patella. I then proceeded with closure. Again, the knee was thoroughly irrigated. The quadriceps tendon and the medial retinaculum were reapproximated with #2 Ethibond suture. The extensor mechanism was then closed with a running #2 Quill suture. Subcutaneous tissues were closed with 2-0 Vicryl interrupted suture. The skin was closed with a running 3-0 Quill suture. Dermabond was applied to the incision. Sterile compressive dressing was then applied. All sponge and needle counts were deemed correct prior to closure. The patient tolerated the procedure without apparent complication. She was transferred to recovery room in stable condition. MMODL / IJN: [id number] /
--- NOTE | 2022-08-25 14:32 | XR ---
EXAMINATION TYPE: XR knee limited LT DATE OF EXAM: 08/25/2022 COMPARISON: None HISTORY: Post left knee replacement TECHNIQUE: 2 view left knee FINDINGS: There is a left knee prosthesis with tibial femoral components. Postsurgical soft tissue ch anges are evident. No acute fractures are evident. IMPRESSION: 1. No acute fracture post knee replacement
--- NOTE | 2022-08-25 18:38 | P.CONS ---
History of Present Illness - Reason for Consult Consult date: 08/25/22 Medical management Requesting physician: José Miguel Smart - Chief Complaint Left knee surgery - History of Present Illness This is a pleasant 77-year-old patient who follows with Dr. Orozco. Chronic stable medical conditions include GERD, hyperlipidemia, hypertension, prostatitis, overactive bladder. Patient is undergoing left total knee arthroplasty. Pain control. Postprocedure no nausea vomiting. No chest shows breath. Reclining bed on liquid diet comfortable. Review of systems: GEN.: None EYES: None HEENT: None NECK: None RESPIRATORY: None CARDIOVASCULAR: None GASTROINTESTINAL: None GENITOURINARY: Incontinent MUSCULOSKELETAL: Joint pains LYMPHATICS: None HEMATOLOGICAL: None PSYCHIATRY: None NEUROLOGICAL: None Past medical history to include: GERD, hypertension, hyperlipidemia, prostatitis, overactive bladder, skin cancer Social history: No smoking. No alcohol. Lives with her son Physical examination: VITAL SIGNS: 97.6, 76, 16, 1 50 x 79, 92% room air] GENERAL: BMI 29.4, laying in bed, awake, comfortable. EYES: Pupils equal. Conjunctiva normal. HEENT: External appearance of nose and ears normal, oral cavity grossly normal. NECK: JVD not raised; masses not palpable. HEART: First and second heart sounds are normal; no edema. LUNGS: Respiratory rate normal; clear to auscultation. ABDOMEN: Soft, nontender, liver spleen not palpable, no masses palpable. PSYCH: Alert and oriented x3; mood and affect normal. MUSCULOSKELETAL:No Clubbing/cyanosis;muscles-grossly intact. Evidence of OA. Dressing over the left knee. NEUROLOGICAL: Cranial nerves grossly intact; no facial asymmetry, power and sensation grossly intact. LYMPHATICS: No lymph nodes palpable in the axilla and neck INVESTIGATIONS, reviewed in the clinical context: Blood work from 08/10/2022: WBC 12.1 hemoglobin 13.5 platelets 320 potassium 4.5 creatinine 0.8 Assessment and plan: -Left total knee arthroplasty Aspirin for DT prophylaxis per orthopedic. Pain control. IV Ancef for infection prophylaxis -Primary osteoarthritis Pain control as needed -GERD Prilosec -Hyperlipidemia Zocor -Essential hypertension Losartan -Overactive bladder Dependence Aspirin for DVT prophylaxis. Pain control. Resume home medications. Care was discussed with the patient. Questions answered. Thank you Dr. Smart, will follow Past Medical History Past Medical History: Cancer, GERD/Reflux, Hyperlipidemia, Hypertension, Osteoarthritis (OA), Skin Disorder Additional Past Medical History / Comment(s): Hx UTI's, hx skin cancer yrs ago History of Any Multi-Drug Resistant Organisms: None Reported Past Surgical History: Breast Surgery, Joint Replacement, Tubal Ligation Additional Past Surgical History / Comment(s): removal of skin cancer from chest and rt shoulder, amanda breast implants, total rt knee replacement,amanda cataracts Past Anesthesia/Blood Transfusion Reactions: Motion Sickness Additional Past Anesthesia/Blood Transfusion Reaction / Comm: no hx blood transfusion Past Psychological History: Anxiety Smoking Status: Never smoker Past Alcohol Use History: None Reported Past Drug Use History: None Reported - Past Family History Mother Family Medical History: Cancer Medications and Allergies Home Medications Medication Instructions Recorded Confirmed Type Ergocalciferol (Vitamin D2) 50,000 unit PO WE 11/01/16 08/25/22 History [Vitamin D2] Losartan Potassium 100 mg PO QAM 11/01/16 08/25/22 History Meloxicam [Mobic] 15 mg PO DAILY 11/01/16 08/25/22 History Simvastatin [Zocor] 20 mg PO HS 11/01/16 08/25/22 History Beet Supplement 1 dose PO DAILY 08/15/22 08/25/22 History Co Q-10 (Unk Dose) 1 tab PO DAILY 08/15/22 08/25/22 History Garlic 1,000 mg PO DAILY 08/15/22 08/25/22 History L.acidoph,Paracasei, B.lactis 1 each PO DAILY 08/15/22 08/25/22 History [Probiotic] [place] Pro Supplement 1 dose PO DAILY 08/15/22 08/25/22 History Omeprazole [PriLOSEC] 20 mg PO AC-BRKFST 08/15/22 08/25/22 History Vein Supplement 1 tab PO DAILY 08/15/22 08/25/22 History Allergies Allergy/AdvReac Type Severity Reaction Status Date / Time Sulfa (Sulfonamide Allergy Rash/Hives Verified 08/25/22 08:19 Antibiotics) Physical Exam Vitals: Vital Signs Temp Pulse Pulse Resp BP BP Pulse Ox 08/25/22 16:08 75 135/77 91 L 08/25/22 15:38 70 149/77 94 L 08/25/22 15:24 74 137/72 95 08/25/22 15:08 77 161/78 91 L 08/25/22 14:53 97.6 F 76 158/79 92 L 08/25/22 13:20 65 16 138/71 96 08/25/22 13:00 62 16 135/72 97 08/25/22 12:45 64 16 140/73 97 08/25/22 12:30 69 12 135/63 97 08/25/22 12:15 65 12 133/65 97 08/25/22 12:03 97 F L 77 12 125/73 93 L 08/25/22 09:37 65 20 132/65 100 08/25/22 09:07 98.0 F 78 18 189/85 97 Intake and Output 08/25/22 08/25/22 08/25/22 06:59 14:59 22:59 Intake Total 1451 Output Total 100 Balance 1351 Intake: IV 1451 Output: Estimated Blood Loss 100 Other: # Voids 1 Weight 87.7 kg
--- NOTE | 2022-08-25 19:38 | P.ANPRN ---
Procedure Note - Anesthesia - Nerve Block Performed Left Adductor Canal Infusion Time Out Performed: Yes Date of Procedure: 08/25/22 Procedure Start Time: Procedure Stop Time: Location of Patient: PreOp Indication: Acute Post-Operative Pain, Requested by Surgeon Sedation Type: Sedate with meaningful contact maintained Preparation: Sterile Prep, Sterile Dressing Position: Supine Catheter: Indwelling Needle Types: Pajunk Needle Gauge: 21 Ultrasound used to visualize needle placement: Yes Ultrasound used to observe medication spread: Yes Blood Aspirated: No Pain Paresthesia on Injection Noted: No Resistance on Injection: Normal Image Stored and Saved: Yes Events: Uneventful and Well Tolerated (ropi .5% 20cc plus dexamethasone 4mg)
--- NOTE | 2022-08-25 19:39 | P.ANPRN ---
Procedure Note - Anesthesia - Nerve Block Performed Left iPack Single Time Out Performed: Yes Date of Procedure: 08/25/22 Procedure Start Time: :30 Procedure Stop Time: :34 Location of Patient: PreOp Indication: Acute Post-Operative Pain, Requested by Surgeon Sedation Type: Sedate with meaningful contact maintained Preparation: Sterile Prep Position: Supine Needle Types: Pajunk Needle Gauge: 21 Ultrasound used to visualize needle placement: Yes Ultrasound used to observe medication spread: Yes Blood Aspirated: No Pain Paresthesia on Injection Noted: No Resistance on Injection: Normal Image Stored and Saved: Yes Events: Uneventful and Well Tolerated (ropi .5% 25cc plus dexamethasone 4mg)
[2022-08-25] MEDS ORDERED: ATORVASTATIN 10 MG TAB PO SCH (21:00)
[2022-08-25] MEDS ORDERED: SENNOSIDES-DOCUSATE SODIUM 1 EACH TAB PO SCH (21:00)
[2022-08-25] MEDS: ASPIRIN 81 MG PO SCH (21:02)
[2022-08-26] MEDS: LACTATED RINGERS 1,000 ML IV SCH (06:58)
[2022-08-26] MEDS ORDERED: PANTOPRAZOLE 40 MG TABLET PO SCH (07:30)
[2022-08-26 07:55] VITALS: BP 121/71; PULSE 73; RESP 16; TEMP 98
--- NOTE | 2022-08-26 07:58 | P.PN ---
Progress Note - Text 08/26/22 630am 77-year-old female's post total knee replacement by Dr. Smart. Patient seen and evaluated for postop pain control, patient has an On-Q pump running at 8 mL an. Patient has a VAS of 2, dressing clean dry and intact. Continue On-Q pump infusion
[2022-08-26] MEDS: ASPIRIN 81 MG PO SCH (08:39)
[2022-08-26 08:42] LABS: HCT 34.8 % (37.2-46.3); HGB 11.4 g/dL (12.0-15.0); MCH 30.5 pg (27.0-32.0); MCHC 32.8 g/dL (32.0-37.0); NRBC Per 100 WBC 0 /100 WBCS (0.0-0.0); Platelet Count 283 X 10*3/uL (140-440); RBC 3.74 X 10*6/uL (4.10-5.20); RDW 12.9 % (11.5-14.5); WBC 20.88 X 10*3/uL (4.50-10.00)
[2022-08-26] MEDS ORDERED: LACTOBACILLUS ACIDOPH & BULGAR 1 EACH PACKET PO SCH (09:00)
[2022-08-26] MEDS ORDERED: MELOXICAM 7.5 MG TAB PO SCH (09:00)
[2022-08-26] MEDS ORDERED: LOSARTAN 50 MG TAB PO SCH (09:00)
[2022-08-26 09:28] LABS: Basophils # (A) 0.05 X 10*3/uL (0.00-0.10); Basophils % (A) 0.2 %; Eosinophils # (A) 0.01 X 10*3/uL (0.04-0.35); Eosinophils % (A) 0 %; Immature Grans, Automated 0.7 %; Lymphocytes # (A) 1.33 X 10*3/uL (0.90-5.00); Lymphocytes % (A) 6.4 %; Monocytes # (A) 2.45 X 10*3/uL (0.20-1.00); Monocytes % (A) 11.7 %; Neutrophils # (A) 16.89 X 10*3/uL (1.80-7.70); RBC Morphology NORMAL
[2022-08-26] MEDS ORDERED: MULTIVITAMINS, THERA 1 EACH TAB PO SCH (12:00)
--- NOTE | 2022-08-26 13:01 | P.DS ---
Providers Expected date of discharge: 08/26/22 Attending physician: José Miguel Smart Consults: 08/25/22 09:31 Consult Physician Routine Consulting Provider: Francisco Clark Consult Reason/Comments: post op medical management Do you want consulting provider notified?: Yes Primary care physician: Luis F Orozco - Discharge Diagnosis(es) (1) Status post total knee replacement Patient was admitted to the OR on 08/25/22 to undergo a left total knee arthroplasty. She had failed conservative measures as an outpatient and desired to proceed with elective surgery after given informed consent. She underwent the above procedure which she tolerated well without complication. Postoperative hospital course has remained without complication. On day of discharge she is afebrile, vital signs stable, labs within acceptable ranges, tolerating by mouth meds and diet, voiding without difficulty, positive flatus, denies abdominal pain or calf pain, pain is controlled on oral pain medication and has no new complaints. Wound is benign, neurovascular status is intact, calf is soft and nontender, abdomen soft and nontender. Review of systems is negative for numbness, tingling, fever, chills, chest pain, shortness of breath, nausea, vomiting, dizziness, headaches, slurred speech or other. Current Visit: No Status: Acute Priority: Medium Procedures: Left TKA Patient Condition at Discharge: Good Plan - Discharge Summary Discharge Rx Participant: Yes New Discharge Prescriptions: New Acetaminophen Tab [Tylenol] 650 mg PO Q4HR PRN tab PRN Reason: Pain Scale 1 To 5 Docusate [Colace] 100 mg PO BID #60 capsule Aspirin [Adult Low Dose Aspirin EC] 81 mg PO BID #60 tab Ondansetron [Zofran] 4 mg PO Q8HR PRN #21 tab PRN Reason: Nausea HYDROcodone/APAP 7.5-325MG [[place] 7.5-325] 1 - 2 each PO Q6HR PRN #42 tab PRN Reason: Pain Continue Simvastatin [Zocor] 20 mg PO HS Meloxicam [Mobic] 15 mg PO DAILY Losartan Potassium 100 mg PO QAM Ergocalciferol (Vitamin D2) [Vitamin D2] 50,000 unit PO WE Omeprazole [PriLOSEC] 20 mg PO AC-BRKFST L.acidoph,Paracasei, B.lactis [Probiotic] 1 each PO DAILY No Action Garlic 1,000 mg PO DAILY Vein Supplement 1 tab PO DAILY [place] Pro Supplement 1 dose PO DAILY Beet Supplement 1 dose PO DAILY Co Q-10 (Unk Dose) 1 tab PO DAILY Discharge Medication List Ergocalciferol (Vitamin D2) [Vitamin D2] 50,000 unit PO WE 11/01/16 [History] Losartan Potassium 100 mg PO QAM 11/01/16 [History] Meloxicam [Mobic] 15 mg PO DAILY 11/01/16 [History] Simvastatin [Zocor] 20 mg PO HS 11/01/16 [History] Beet Supplement 1 dose PO DAILY 08/15/22 [History] Co Q-10 (Unk Dose) 1 tab PO DAILY 08/15/22 [History] Garlic 1,000 mg PO DAILY 08/15/22 [History] L.acidoph,Paracasei, B.lactis [Probiotic] 1 each PO DAILY 08/15/22 [History] [place] Pro Supplement 1 dose PO DAILY 08/15/22 [History] Omeprazole [PriLOSEC] 20 mg PO AC-BRKFST 08/15/22 [History] Vein Supplement 1 tab PO DAILY 08/15/22 [History] Acetaminophen Tab [Tylenol] 650 mg PO Q4HR PRN tab 08/26/22 [Rx] Aspirin [Adult Low Dose Aspirin EC] 81 mg PO BID #60 tab 08/26/22 [Rx] Docusate [Colace] 100 mg PO BID #60 capsule 08/26/22 [Rx] HYDROcodone/APAP 7.5-325MG [[place] 7.5-325] 1 - 2 each PO Q6HR PRN #42 tab 08/26/22 [Rx] Ondansetron [Zofran] 4 mg PO Q8HR PRN #21 tab 08/26/22 [Rx] Follow up Appointment(s)/Referral(s): Luis F Orozco MD [Primary Care Provider] - 10 Days (office is closed at time of discharge. Please call to schedule appointment ) [facility] [place] [NON-STAFF] - 1-2 Days José Miguel Smart MD [STAFF PHYSICIAN] - 09/06/22 2:30 pm Patient Instructions/Handouts: Precautions after Total Joint Replacement Surgery (DC), Joint Replacement Surgery (DC), Knee Replacement (DC) Activity/Diet/Wound Care/Special Instructions: weightbear as tolerated keep wound clean and dry take meds as directed f/u in office may shower in 3 days if no bleeding Discharge Disposition: HOME WITH HOME HEALTH SERVICES
--- NOTE | 2022-08-26 16:57 | P.PN ---
Progress Note - Text Progress Note Date: 08/26/22 - Chief Complaint Left knee surgery Hospital course This is a pleasant 77-year-old patient who follows with Dr. Orozco. Chronic stable medical conditions include GERD, hyperlipidemia, hypertension, prostatitis, overactive bladder. Patient is undergoing left total knee arthroplasty. Pain control. Postprocedure no nausea vomiting. No chest pain or shortness of breath. Reclining bed on liquid diet comfortable. 08/26/2022: Comfortable. Sitting up. Did ambulate. Pain is better. Did tolerate breakfast. No dizziness or lightheadedness. Keen to go home. Current medications reviewed Past medical history to include: GERD, hypertension, hyperlipidemia, prostatitis, overactive bladder, skin cancer Social history: No smoking. No alcohol. Lives with her son Physical examination: VITAL SIGNS: 98, 73, 16, 121 with 71, 92% room air GENERAL: Sitting up, comfortable. EYES: Pupils equal. Conjunctiva normal. HEENT: External appearance of nose and ears normal, oral cavity grossly normal. NECK: JVD not raised; masses not palpable. HEART: First and second heart sounds are normal; no edema. LUNGS: Respiratory rate normal; clear to auscultation. ABDOMEN: Soft, nontender, liver spleen not palpable, no masses palpable. PSYCH: Alert and oriented x3; mood and affect normal. MUSCULOSKELETAL:No Clubbing/cyanosis;muscles-grossly intact. Evidence of OA. Dressing over the left knee. INVESTIGATIONS, reviewed in the clinical context: 08/26/2022: WBC 20.8 hemoglobin 11.4 platelets decreased Blood work from 08/10/2022: WBC 12.1 hemoglobin 13.5 platelets 320 potassium 4.5 creatinine 0.8 Assessment and plan: -Left total knee arthroplasty Aspirin for DT prophylaxis per orthopedic. Pain control. IV Ancef for infection prophylaxis -Acute postprocedure blood loss anemia expected from surgery Outpatient CBC follow-up. -Abnormal CBC Patient should have a repeat CBC done in in about 10 days with her PCP.copy of dictation sent to pcp -Primary osteoarthritis Pain control as needed -GERD Prilosec -Hyperlipidemia Zocor -Essential hypertension Losartan -Overactive bladder Dependence Stable. Continue current medications. Patient developed a bit CBC in about 10 days with PCP.copy of dictation sent to pcp Thank you Dr. Smart, will follow
== END 2022-08-26 14:05 | disposition home health service (06) ==
LOC: OR 07:42 → 4SSUR 13:14 → OR 08-26 14:05
PROVIDERS: ATTEND Orthopaedic Surgery Sports Medicine
DX: M17.12 Unilateral primary osteoarthritis, left knee (principal); G89.18 Other acute postprocedural pain; I10 Essential (primary) hypertension; E78.5 Hyperlipidemia, unspecified; H91.90 Unspecified hearing loss, unspecified ear; R26.9 Unspecified abnormalities of gait and mobility; Z88.2 Allergy status to sulfonamides; Z82.49 Family history of ischemic heart disease and other diseases of the circulatory system
CPT/HCPCS: 97161; 64999; 64448; 76942; 85025; 88300; 73560; 27447; C1776; C1713; C1751; J2250; J1100; J0690 ×3; J2405; J3010; J2795 ×2; J2704